=== PATIENT | male | born 1965 | race Caucasian/White ===

== ENCOUNTER 2021-02-13 17:50 | Outpatient (REF) | payer BC, SELFPAY ==
[2021-02-13 18:32] LABS: Influenza A PCR NEGATIVE (Negative); Influenza B PCR NEGATIVE (Negative); Resp Syncy Virus RNA Qual PCR NEGATIVE (Negative); SARS COV2 PCR INHOUSE NEGATIVE (Negative)
== END 2021-02-13 17:51 | disposition home or self-care (01) ==
LOC: HO.LNP 17:50
PROVIDERS: Visit Provider Physician Assistant
DX: Z20.822 Contact with and (suspected) exposure to COVID-19 (principal); J06.9 Acute upper respiratory infection, unspecified
CPT/HCPCS: 0241U

== ENCOUNTER 2021-03-29 11:05 | Outpatient (REF) | payer BC, SELFPAY ==
--- NOTE | ~2021-03-29 | XR_ITS ---
EXAMINATION: XR CHEST CLINICAL INFORMATION: Cough COMPARISON: None TECHNIQUE: 2 views of the chest were obtained. FINDINGS: There is a region of parenchymal disease seen within the lingula likely related to atelectasis or scarring. Pneumonitis not excluded. Heart appears mildly enlarged. No evidence of pulmonary edema. No pneumothorax or pleural effusion. XR/XR chest 2V IMPRESSION: Lingular disease likely related to atelectasis or scarring.
== END 2021-03-29 11:06 | disposition home or self-care (01) ==
LOC: HO.HMGCX 11:05
PROVIDERS: Visit Provider Nurse Practitioner Family
DX: R05.8 Other specified cough (principal)
CPT/HCPCS: 71046

== ENCOUNTER 2024-09-26 15:09 | Outpatient (REF) | payer BC, SELFPAY ==
--- OUTSIDE RECORDS SUMMARY | 2024-09-26 15:44 | XMS_ITS | Patient Health Record ---
[facility] Address [address] [place] [address] Care Team Providers Care Fisher Swordfish Name Role Phone Pawel Oconnor MD Primary Care Provider Eleazar Walter Unavailable [phone] Allergies Allergen (clinical drug ingredient) Drug/Non Drug Allergy documented on EMR Reaction Allergy Type Onset Date Status meperidine Demerol Unknown Drug Allergy Active Reason For Referral No Information Medications Medication SIG (Take, Route, Frequency, Duration) Notes Start Date End Date Status Omeprazole 20 MG 1 capsule Orally Onc e a day Active Zoloft 100 MG 1 tablet Orally Once a day Active Plavix 75 MG 1 tablet Orally Once a day Active LORazepam 0.5 MG 1 tablet at bedtime as needed Orally Once a day Active Lipitor 40 MG 1 tablet Orally Once a day Active Isosorbide Mononitrate 20 MG 1 tablet Orally Twice a day Active Naproxen 500 MG 1 tablet as needed Orally every 12 hrs Active traZODone HCl Active Aspirin 81 MG 1 tablet Orally Once a day Active Toprol XL 25 MG 1 tablet Orally Once a day Active Citalopram Hydrobromide Not-Taking Wellbutrin Active Norvasc 5 MG 1 tablet Orally Once a day Active Flomax 0.4 MG 1 capsule 30 minutes after the same meal each day Orally Once a day Active Social History Tobacco Use: Social History Observation Description Date Details (start date - stop date) Never Smoker NA - NA Tobacco Use/Smoking Question Answer Notes Are you a: nonsmoker Additional Findings: Tobacco Non-User Aggressive non-smoker Alcohol Screen Question Answer Notes Did you have a drink containing alcohol in the p ast year? Yes Points 0 Interpretation Negative Tobacco use other than smoking: Question Answer Notes Are you an other tobacco user? No Problems Problem Type SNOMED Code ICD Code Onset Dates Problem Status W/U Status Risk Notes Problem Localized, primary osteoarthritis of the ankle and/or foot (841606566) Primary osteoarthrit is, left ankle and foot (M19.072) Active confirmed Plan Of Treatment No Information Insurance Providers Payer Name Payer Address Payer Phone Subscriber Number Group Number Insured Name Patient Relationship to Insured Coverage Start Date Coverage End Date [facility] [address] [place] [address] [phone] [id number] Self - patient is the insured Medical (General) History Medical History History ICD Code Anxiety Depression Gout chronic sinusitis Mumps Measles Chicken pox heart attack Hyperlipidemia Myocardial infarction low testosterone Obesity dysplastic nevus urinary calculus chest pain rhinitis Hearing loss Surgical History Surgery Date(Month/Year) strabismus surgery Hospitalization History Reason Date(Month/Year[place] [facility] [place]
--- OUTSIDE RECORDS SUMMARY | 2024-09-26 15:44 | XMS_ITS | Clinical Summary ---
Author Organization [facility] Address [address] [address] Phone Care Team Providers Care Estimator Printing Name Role Phone Pawel Oconnor MD Primary Care Provider U navailable Allergies Active Allergy Reactions Criticality Noted Date Comments Demerol (Meperidine) Unknown 10/29/2014 Medications atorvastatin (LIPITOR) 40 MG tablet Take 1 tablet (40 mg total) by mouth daily. 90 tablet 3 10/29/2014 Active tamsulosin (FLOMAX) 0.4 mg Cp24 Take 1 capsule (0.4 mg total) by mouth daily. 30 capsule 0 10/29/2014 Active Active Problems Problem Noted Date Diagnosed Date Angina at rest 10/29/2014 Myocardial infarction 10/29/2014 Orthostatic hypotension 10/29/2014 Dyslipidemia 10/29/2014 Obesity 10/29/2014 Family History Medical History Relation Comments Alzheimer's disease Father Hypertension Father Depression Mother Relation Status Comments Father Mother Social History Tobacco Use Types Packs/Day Years Used Date Smoking Tobacco: Never Alcohol Use Standard Drinks/Week Comments Not Asked 0 (1 standard drink = 0.6 oz pur e alcohol) Education Answer Date Recorded Are you interested in more education? Not on drew e 06/06/2022 Are you concerned about learning? Not on file 06/06/2022 No 06/06/2022 No 06/06/2022 Digital Access Answer Date Recorded No 07/07/2022 No 07/07/2022 No 07/07/2022 Reliable internet access at home? Not on file 07/07/2022 Device with a working camera? Not on file Sex and Gender Information Value Date Recorded Sex Assigned at Not on file Legal Sex Male 9:56 AM EDT Gender Identity Not on file Sexual Orientation Not on file Last Filed Vital Signs Vital Sign Reading Time Taken Comments Blood Pressure 111/80 10/30/2014 1:25 PM EDT Pulse 80 10/30/2014 1:25 PM EDT Temperature - - Respiratory Rate - - Oxygen Saturation - - Inhaled Oxygen Concentration - - Weight 113.4 kg (250 lb) 10/30/2014 1:25 PM EDT Height - - Body Mass Index - - Plan of Treatment Health Maintenance Due Date Last Done Comments LIPID PANEL 1966 HEPATITIS C SCREENING 1984 HIV ONE-TIME SCREENING (18-6 5 YEARS) 1984 COLOGUARD 09/13/2011 COLONOSCOPY 09/13/2011 COLORECTAL CANCER SCREENING 09/13/2011 FIT TEST 09/13/2011 FOBT 09/13/2011 SIGMOIDOSCOPY 09/13/2011 VIRTUAL COLONOSCOPY 09/13/2011 DEPRESSION SCREENING 10/31/2015 10/30/2014, 10/30/2014 Adult Td,Tdap Booster 05/22/2016 05/22/2006 PNEUMOCOCCAL VACCINES (50+ years) (1 of 1 - PCV) 2016 ZOSTER VACCINES (1 of 2) 2016 COVID-19 VACCINE (3 - 2023-2 5 season) 2023 05/18/2020, 04/27/2020 SMOKING STATUS SCREENING (On ce After 26 Yrs) Completed 10/30/2014 HEPATITIS A VACCINES Aged Out No long er eligible based on patient's age to complete this topic HIB VACCINES Aged Out No longer eligi ble based on patient's age to complete this topic MENINGOCOCCAL VACCINES (ACWY) Aged Out No longer eligible based on patient's age to complete this topic MENINGOCOCCAL VACCINES (B) Aged Out N o longer eligible based on patient's age to complete this topic Medical Devices Not on file Insurance [facility] HMO POS HMO POS HMO POS HMO POS HMO POS HMO POS [place] [address] [place] [address] HMO POS HMO POS Care Teams Estimator Printing Relationship Specialty Start Date End Date Pawel Oconnor MD PCP - General Internal Medicine 10/25/14 Additional Source Comments The information contained in this document represents components of the legal health record. It is not the complete legal health record.[facility]
--- OUTSIDE RECORDS SUMMARY | 2024-09-26 15:44 | XMS_ITS ---
Author Name [facility] Organization Unknown Care Team Organization Name Specialty Phone Email Start Date End Da cj [facility] Pavan Flores Primary Care 12/17/2021
--- OUTSIDE RECORDS SUMMARY | 2024-09-26 15:44 | XMS_ITS | Clinical Summary ---
Author Organization [address] [place] [address] [place] [phone] Phone Care Team Providers Care Parts Inspector Name Role Phone Jayshree Alfaro MD Primary Care Provider + Allergies Active Allergy Reactions Criticality Noted Date Comments Meperidine Hcl 04/04/2005 Fliffed out Medications omeprazole 20 mg tablet,disintegr at, delay rel Take 20 mg by mouth daily. Active potassium citrate (UROCIT-K) 15 mEq SR tablet Take by mouth 2 times daily. Active tamsulosin (FLOMAX) 0.4 mg 24 hr capsule Take 0.4 mg by mouth 2 times daily. Take 30 mins after same meal every day. Active gabapentin (NEURONTIN) 100 mg capsule Take 2 capsules (200 mg total) by mouth 3 (three) times a day. 1 Active LORazepam (ATIVAN) 0.5 mg tablet Take 1 tablet by mouth daily as needed for Anxiety. 1 Active sertraline (ZOLOFT) 100 mg tablet 2 po qhs 1 Active traZODone (DESYREL) 100 mg tablet 1 po qhs prn insomnia 1 Active metaxalone (SKELAXIN) 800 mg tablet Take 1 tablet by mouth 3 times daily. Covering provider, As needed for muscle spasm 1 Active albuterol HFA (PROAIR HFA ; PROVENTIL HFA ; VENTOLIN HFA) 90 mcg/actuation inhaler Inhale 2 Puffs into the lungs every 4 hours as needed for Cough or Wheezing. 0 Active nitroglycerin (NITROSTAT) 0.4 mg SL tablet Take one tablet under your tongue for chest pain. If you still have chest pain after five minutes, take another tablet under your tongue. If you still have chest pain five minutes later, take a third tablet and call 911 to go to the hospital. Do not drive yourself. 9 Active aspirin 81 mg EC tablet Take 1 tablet (81 mg total) by mouth 1 (one) time each day. Active traZODone (DESYREL) 50 mg tablet Take 1 tablet (50 mg total) by mouth at bedtime. Active atorvastatin (LIPITOR) 80 mg tablet Take 1 tablet (80 mg total) by mouth 1 (one) time each day. 90 tablet 3 5 Active isosorbide mononitrate (IMDUR) 30 mg 24 hr tablet Take 1 tablet (30 mg total) by mouth 1 (one) time each day. 90 tablet 3 5 Active amLODIPine (NORVASC) 5 mg tablet Take 1 tablet (5 mg total) by mouth 1 (one) time each day. 90 each 3 5 02/11/19 26 Active metoprolol succinate (TOPROL-XL) 25 mg 24 hr tablet Take 1 tablet (25 mg total) by mouth 2 (two) times a day. 180 tablet 3 5 Active Active Problems Problem Noted Date Diagnosed Date CAD (coronary artery disease) 03/06/2022 SOB (shortness of breath) 03/06/2022 CKD (chronic kidney disease) stage 3, GFR 30-59 ml/min ([facility] V24, [facility] V28) 09/18/2020 Treatment-emergent central sleep apnea 1 Overview (12/30/2023): 08/2020 central apnea emergent on CPAP. Stress echocardiogram April 2020 showed EF of 65%. Essential hypertension 06/05/2020 Assessment & Plan (02/12/2024 10:07 AM EST): Orders: ECG 12 lead Lipid panel with reflex to direct LDL; Future Basic metabolic panel; Future Obstructive sleep apnea 10/14/2019 Overview (12/30/2023): [facility] Home Sleep Apnea Test: Date 10/06/2019; Wt 240#; BMI 41; HASMUKH (AHI) 13, AI 4; HI 8; Unclassified apneas 3; Obstructive apneas 7; Central apneas 1; Mixed apneas 0; hypopneas 22; average oxygen saturation 92% (lowest 82% without saturations <88% for 5% or more of study) - Obstructive Sleep Apnea - mild; mostly hypopneas; without sleep related hypoventilation by 2019 home sleep apnea test. Anxiety 04/04/2019 Lung nodule 09/17/2018 Overview (12/30/2023): CT from 09/2018: There is a 3.5 mm nodule in the right upper lobe, axial image number 93. There is 3.1 mm subpleural nodule in the left lower lobe, axial image 179. Radiology suggested a 12-month CT if the patient has risk factors for malignancy which he really does not. Patient is not sure if he wants to do another CT at this point and would prefer to hold off on ordering for now. Major depressive disorder, r ecurrent episode, mild ([facility] V24) 11/21/2014 Hyperlipidemia 09/15/2012 Assessment & Plan (02/12/2024 10:07 AM EST): Orders: Lipid panel with reflex to direct LDL; Future Basic metabolic panel; Future Old DC (myocardial infarction) 07/30/2011 Overview (12/30/2023): [facility] 07/28/11 - elevated tro and CK; normal coronary arteries on cath, suspect vasospasm Readmit 08/01/11 Low testosterone 02/24/2011 Severe obesity (BMI 35.0-39. 9) with comorbidity ([facility]CC V24, [facility] V28) 05/28/2010 Chronic rhinitis 04/04/2005 Sensorineural hearing loss 04/04/2005 Urinary calculus 04/04/2005 Immunizations Name Administration Dates Next Due Hepatitis B (Ytrxwid-M-Ghkty , Recombivax HB-Adult) 19yo and older 05/04/2013,04/06/2013,12/12/2009,2009,06/01/2009 Influenza trivalent, 0.5mL, preservative free (Fluarix; FluLaval; Fluzone) ages 6mo and older (Afluria) 3 years and older 11/28/2016,11/17/2011,10/26/2009 Influenza, Unspecified 11/23/2020,2019,11/09/2017,2015 PPD Test 03/30/2013 Tdap Tetanus diptheria acell ular pertussis (Boostrix; Adacel) 7yo and older 05/22/2006 Surgical History Surgery Date Site/Laterality Comments OTHER SURGICAL HISTORY PROCEDURE: HISTORY OTHER; COMMENT: strabismus surgery CARDIAC CATHETERIZATION PROCEDURE: HISTORICAL CARDIAC CATH; COMMENT: no blockages, vasospasm TYMPANOSTOMY TUBE PLACEMENT PROCEDURE: HISTORICAL PE TUBES OTHER SURGICAL HISTORY PROCEDURE: NM EXC B9 LESION MRGN XCP SK TG T/A/L 0.5 CM/<; COMMENT: dermatology OTHER SURGICAL HISTORY PROCEDURE: SKIN CYST; COMMENT: right shoulder removed Medical History Medical History Date Comments Anxiety state, unspecified DX:An xiety state, unspecified Urinary calculus, unspecified DX :Urinary calculus, unspecified Chest pain, unspecified DX:Chest pain, unspecified Chronic rhinitis DX:Chronic rhin itis Sensorineural hearing loss, unspecified DX:Sensorineural hearing loss, unspecified Low testosterone 02/24/2011 DX:Low testoste robbin Hyperlipidemia 09/15/2012 DX:Hyperlipidemi a Old DC (myocardial infarction) 07/30/2011 D X:Old DC (myocardial infarction); COMMENT: [facility] 07/28/11 - elevated tro and CK; normal coronary arteries on cath, suspect vasospasm Readmit 08/01/11 History of dysplastic nevus 10/20/2007 DX:H istory of dysplastic nevus; COMMENT: Dysplastic nevi 10/17 midback & lower back (mild atypia) Fracture of thoracic spine ( [facility] V24, [facility] V28) 08/16/2018 DX:Fracture of thoracic spin e (HCC) CKD (chronic kidney disease) stage 3, GFR 30-59 ml/min ([facility] V24, [facility] V28) 09/18/2020 DX:CKD (chronic kidney disea se) stage 3, GFR 30-59 ml/min ([facility]) Severe obesity (BMI 35.0-39. 9) with comorbidity ([facility] V24, [facility]/H[facility] V28) 05/28/2010 DX:Severe obesi ty (BMI 35.0- 39.9) with comorbidity (HCC) BPH (benign prostatic hyperplasia) DX:BPH (benign prostatic hyperplasia) Low back pain DX:Low back pain Major depression, recurrent (CMS/HCC V24) DX:Major depression, recurre nt (HCC) Class 2 obesity DX:Class 2 obesi ty Diverticulum of bladder DX:Diver ticulum of bladder Nephrolithiasis DX:Nephrolithias is Family History Medical History Relation Name Comments Other: arm amputation Aunt not jung re why? Alzheimer's disease Father HTN, uma dder cancer Diabetes Maternal Grandfather Diabetes Mother dementia Other: cousin w/ brain cancer Other Lung cancer Paternal Grandfather smoker Other: kidney cancer? Uncle smoker Relation Name Status Comments Aunt Brother Alive htn Father HTN Maternal Grandfather Mother Alive well Other Paternal Grandfather Uncle Social History Tobacco Use Types Packs/Day Years Used Date Smoking Tobacco: Never Smokeless Tobacco: Never Alcohol Use Standard Drinks/Week Comments Yes 0 (1 standard drink = 0.6 oz pur e alcohol) occasionally Sex and Gender Information Value Date Recorded Sex Assigned at Not on file Legal Sex Male 6:32 AM EST Gender Identity Not on file Sexual Orientation Not on file Obstetrics History Last Filed Vital Signs Vital Sign Reading Time Taken Comments Blood Pressure 104/70 02/12/2024 9:32 AM EST Pulse 90 12/24/2022 11:22 AM EST Temperature - - Respiratory Rate - - Oxygen Saturation 92% 02/12/2024 9:32 AM EST Inhaled Oxygen Concentration - - Weight 110 kg (243 lb) 02/12/2024 9:32 AM EST Height 167.6 cm (5' 6 ) 02/12/2024 9:32 AM EST Body Mass Index 39.22 02/12/2024 9:32 AM EST Plan of Treatment Health Maintenance Due Date Last Done Comments Pneumococcal Vaccine: 50+ Years (1 of 1 - PCV) 2016 HIV Screening 01/18/2022 Hepatitis C Screening 01/18/2022 Social Influencers of Health Screening 01/18/2022 COVID-19 Vaccine ( season) 2023 01/11/2021, 05/18/2020, 04/27/2020 Depression Screening 02/10/2024 Influenza Vaccine (#1) 2024 2, 11/23/2020, 11/13/2020, Additional history exists Hypertension/CHF/CAD Annual BMP Blood Test 02/15/2025 02/16/2024, 09/17/2020 Cholesterol Screening (Lipid Panel) 02/15/2026 02/15/2021 Colorectal Cancer Screening: Colonoscopy 03/25/2027 03/25/2017 DTaP,Tdap,and Td Vaccines (3 - Td or Tdap) 11/15/2031 11/14/2021, 05/22/2006 Hepatitis B Vaccines Completed 05/04/2013, 04/06/2013, 12/12/2009, Additional history exists Zoster Vaccines Completed 06/15/2021, 04/11/2021 HIB Vaccines Aged Out No longer eligi ble based on patient's age to complete this topic HPV Vaccines Aged Out No longer eligi ble based on patient's age to complete this topic Hepatitis A Vaccines Aged Out No long er eligible based on patient's age to complete this topic IPV Vaccines Aged Out No longer eligi ble based on patient's age to complete this topic MMR Vaccines Aged Out No longer eligi ble based on patient's age to complete this topic Meningococcal ACWY Vaccine Aged Out N o longer eligible based on patient's age to complete this topic Meningococcal B Vaccine Aged Out No l onger eligible based on patient's age to complete this topic RSV Immunization Patients Under 20 months Aged Out No longer eligible based on patient's age to complete this topic Varicella Vaccines Aged Out No longer eligible based on patient's age to complete this topic Procedures Procedure Name Priority Date/Time Associated Diagnosis Comments BASIC METABOLIC PANEL Routine 02/16/2024 10:00 AM EST Essential hypertension Hyperlipidemia, unspecified hyperlipidemia type LIPID PANEL Routine 02/15/2021 HM COLONOSCOPY Routine 03/25/2017 from Last 3 Months or Most Recently Relevant to Health Maintenance Results * (ABNORMAL) Basic metabolic panel (02/16/2024 10:00 AM EST) Glucose 100(H) 70 - 99 mg/dL [facility] Blood Urea Nitrogen (BUN) 24 6 - 24 mg/dL [facility] Creatinine 1.52(H) 0.76 - 1.27 mg/dL [facility] 1 eGFR 53(L) >59 mL/min/1.7 3 [facility] 1 BUN/Creatinine Ratio 16 9 - 20 [facility] 1 Sodium 144 134 - 144 mmol/L [facility] 1 Potassium 4.2 3.5 - 5.2 mmol/L [facility] 1 Chloride 103 96 - 106 mmol/L [facility] 1 Carbon Dioxide 24 20 - 29 mmol/L [facility] 1 Calcium 9.3 8.7 - 10.2 mg/dL [facility] 1 Blood Venous blood specimen / Unknown 02/16/2024 10:00 AM EST 02/16/2024 Narrative [facility] 1 - 02/17/2024 1:05 AM EST Performed at: [facility] [address] [id number] Pulmonary Disease Specialist: Betzaida Oliva MD, Phone: [phone] El Patel MD LAB BLOOD ORDERABLES Darlene l Result [facility] 1 * (ABNORMAL) Lipid panel (02/15/2021) Pathologist [facility] LDL/HDL Ratio 4 0 - 4 Triglycerides 141 0 - 150 mg/dL Cholesterol 125 0 - 200 mg/dL HDL 33(A) >=40 mg/dL LDL Cholesterol 64 0 - 100 mg/dL Blood Venous blood specimen / Unknown Historical Kira ALLEN LAB BLOOD ORDERABLES Darlene l Result * Colonoscopy (03/25/2017) Pathologist [facility] Colonoscopy abstracted, no interpretation Anatomical Region Laterality Modality Other Historical Provider HEALTH MAINTENANCE Final Result from Last 3 Months or Most Recently Relevant to Health Maintenance Insurance [facility] Advance Directives Documents on File Type Date Recorded Patient Trial Mgr Expl anation Health Care Decision (hx) 05/08/2009 AD ADAME DIRECTIVE Health Care Decision (hx) 05/08/2009 AD ADAME DIRECTIVE Health Care Decision (hx) 05/08/2009 AD ADAME DIRECTIVE Health Care Decision (hx) 05/08/2009 AD ADAME DIRECTIVE Health Care Decision (hx) 05/08/2009 AD ADAME DIRECTIVE Health Care Decision (hx) 05/08/2009 AD ADAME DIRECTIVE Health Care Decision (hx) 05/08/2009 AD ADAME DIRECTIVE Health Care Decision (hx) 05/08/2009 AD ADAME DIRECTIVE Health Care Decision (hx) 05/08/2009 AD ADAME DIRECTIVE Care Teams Parts Inspector Relationship Specialty Start Date End Date Jayshree Alfaro MD [address] [place] [phone] PCP - General 03/07/22
--- OUTSIDE RECORDS SUMMARY | 2024-09-26 15:44 | XMS_ITS | Clinical Summary ---
Author Organization [facility]. Address [address] [address] Phone Care Team Providers Care Best Worker Name Role Phone Jayshree Alfaro MD Primary Care Provider + Allergies Active Allergy Reactions Criticality Noted Date Comments Meperidine Other (see comments) 06/03/2022 anger Medications aspirin (ST IKE) 81 MG EC tablet Take 81 mg by mouth 1 (one) time each day Active atorvastatin (LIPITOR) 40 MG tablet Take 40 mg by mouth every night Active tamsulosin (FLOMAX) 0.4 MG 24 hr capsule Take 0.4 mg by mouth 1 (one) time each day Active gabapentin (NEURONTIN) 100 MG capsule Take 100 mg by mouth in the morning and 100 mg in the evening and 100 mg before bedtime. Active isosorbide mononitrate (IMDUR) 30 MG 24 hr tablet Take 30 mg by mouth 1 (one) time each day Do not crush or chew. Active LORazepam (ATIVAN) 0.5 MG tablet Take 0.5 mg by mouth 1 (one) time each day if needed for anxiety Active metoprolol succinate XL (TOPROL XL) 25 MG 24 hr tablet Take 12.5 mg by mouth 1 (one) time each day Do not crush or chew. Active omeprazole (PriLOSEC) [address] capsule Take 20 mg by mouth 1 (one) time each day Do not crush or chew. Active sertraline (ZOLOFT) 100 MG tablet Take 100 mg by mouth 1 (one) time each day Active traZODone (DESYREL) 100 MG tablet Take 300 mg by mouth every night Active amLODIPine (NORVASC) 5 MG tablet Take 5 mg by mouth 1 (one) time each day Active finasteride (PROSCAR) 5 MG tablet Take 5 mg by mouth 1 (one) time each day 03/30/2024 Active clopidogrel (Plavix) 75 MG tablet Take 75 mg by mouth 1 (one) time each day at the same time Active Active Problems Problem Noted Date Diagnosed Date Chronic back pain 08/23/2024 Complete deafness 12/02/2022 12/02/2022 H/O: vertebral fracture 12/02/2022 12/03/19 History of non-ST segment elevation myocardial i nfarction 12/02/2022 12/02/2022 Stage 3a chronic kidney disease 06/04/2022 Nephrolithiasis 06/04/2022 Hypertension 06/04/2022 Acute nontraumatic kidney injury 06/04/2022 Coronary arteriosclerosis 03/06/2022 Obstructive sleep apnea 10/14/2019 Overview (08/23/2024): [facility] Home Sleep Apnea Test: Date 10/06/2019; Wt [...] hypoventilation by 2019 home sleep apnea test. Dyslipidemia 10/29/2014 12/02/2022 Hyperlipidemia 09/15/2012 Resolved Problems Problem Noted Date Diagnosed Date Resolved Date Serum creatinine above reference range 06/03/2022 12/02/2022 Encounters Date Type Department Care Team Description 08/23/2024 4:30 PM EDT Office Visit [facility] [address] [phone] Ken Williamson MD Stage 3a chronic kidney disease (HCC) (Primary Dx) 08/13/2024 Orders Only [facility] [address] [phone] Ken Williamson MD 08/09/2024 Orders Only [facility] [address] [facility] [address] [place] [address] Ade Mccullough Stage 3a chronic kidney disease (HCC) (Primary Dx); Nephrolithiasis; Hypertension; Dyslipidemia from Last 3 Months Immunizations Immunization Administration Dates Next Due Hepatitis B 05/04/2013, 4,12/12/2009,07/05/2009 ,06/01/2009 Influenza (IM) Preservative Free 11/28/2016,10/0 09/2011,10/26/2009 Influenza, Unspecified 11/23/2020,11/11/2019,02/2017,11/21/2015 PPD Test 03/30/2013 Pfizer SARS-COV-2 01/11/2021,05/18/2020,04/28/19 21 Shingrix 06/15/2021,04/11/2021 Td, Unspecified 11/14/2021 Tdap 05/22/2006 Family History Medical History Relation Comments Cancer Father bladder Lymphoma Father Diabetes Mother type 2 Relation Status Comments Father Mother Social History Tobacco Use Types Packs/Day Years Used Date Smoking Tobacco: Never Smokeless Tobacco: Never Tobacco Cessation:Counseling Given: Not Answered Alcohol Use Standard Drinks/Week Comments Yes 0 (1 standard drink = 0.6 oz pur e alcohol) ocassionally Sex and Gender Information Value Date Recorded Sex Assigned at Not on file Legal Sex Male 5:21 PM EST Gender Identity Not on file Sexual Orientation Not on file Last Filed Vital Signs Vital Sign Reading Time Taken Comments Blood Pressure 106/60 08/23/2024 4:57 PM EDT Pulse 70 06/04/2022 10:35 AM EDT Temperature - - Respiratory Rate - - Oxygen Saturation 97% 06/04/2022 10:35 AM EDT Inhaled Oxygen Concentration - - Weight 110 kg (243 lb) 08/23/2024 4:57 PM EDT Height 175.3 cm (5' 9 ) 06/04/2022 10:35 AM EDT Body Mass Index 35.88 06/04/2022 10:35 AM EDT Plan of Treatment Upcoming Encounters Date Type Department Care Team (Late st Contact Info) Description 02/21/2025 3:30 PM EST Office Visit [facility] [address] [facility] [address] [place] [address] Ken Williamson MD [address] [facility] [address] [place] [address] Health Maintenance Due Date Last Done Comments Hepatitis B Vaccine (1 of 3 - 19+ 3-dose series) 1984 05/04/2013, 04/06/2013, 12/12/2009, Additional history exists Pneumococcal Vaccine: 50+ Ye ars (1 of 2 - PCV) 1985 Colorectal Cancer Screening: Annual FOBT 09/13/2015 Colorectal Cancer Screening: Colonoscopy 09/13/2015 Colorectal Cancer Screening: Sigmoidoscopy 09/13/2015 Influenza Vaccine (#1) 2024 , 11/11/2019, 11/09/2017, Additional history exists Procedures Procedure Name Priority Date/Time Associated Diagnosis Comments PROTEIN / CREATININE RATIO, URINE Routine 08/13/2024 9:00 AM EDT URINALYSIS WITH MICROSCOPIC Routine 08/13/2024 9:00 AM EDT MICROSCOPIC EXAMINATION - DO NOT USE Routine 08/13/2024 9:00 AM EDT PTH, INTACT Routine 08/11/2024 3:00 PM EDT Stage 3a chronic kidney disease (HCC) Nephrolithiasis Hypertension Dyslipidemia COMPREHENSIVE METABOLIC PANEL Routine 08/11/2024 3:00 PM EDT Stage 3a chronic kidney disease (HCC) Nephrolithiasis Hypertension Dyslipidemia URIC ACID Routine 08/11/2024 3:00 PM EDT Stage 3a chronic kidney disease (HCC) Nephrolithiasis Hypertension Dyslipidemia PHOSPHATE ( PHOSPHORUS) Routine 08/11/2024 3:00 PM EDT Stage 3a chronic kidney disease (HCC) Nephrolithiasis Hypertension Dyslipidemia VITAMIN D 25 HYDROXY Routine 08/11/2024 3:00 PM EDT Stage 3a chronic kidney disease (HCC) Nephrolithiasis Hypertension Dyslipidemia CBC AND DIFFERENTIAL Routine 08/11/2024 3:00 PM EDT Stage 3a chronic kidney disease (HCC) Nephrolithiasis Hypertension Dyslipidemia MAGNESIUM Routine 08/11/2024 3:00 PM EDT Stage 3a chronic kidney disease (HCC) Nephrolithiasis Hypertension Dyslipidemia from Last 3 Months Results * (ABNORMAL) Microscopic Examination (08/13/2024 9:00 AM EDT) WBC, Urine 0-5 0 - 5 /hpf [facility] RBC, Urine None seen 0 - 2 /hpf [facility] Squamous Epithelial, Urine None seen 0 - 10 /hpf [facility] Casts None seen None seen /lpf [facility] Bacteria, Urine Moderate(A ) None seen/Few [facility] 08/13/2024 9:00 AM EDT 08/13/2024 us Ken Williamson MD LAB MICROBIOLOGY - GE NERAL ORDERABLES Final Result [facility] [address] [place] [address] * Protein, Total, Random Urine w/Creatinine (Protein/Creat Ratio) (08/13/2024 9:00 AM EDT) Creatinine, Ur 86.7 Not Estab. mg/dL [facility] Protein, Ur 9.3 Not Estab. mg/dL [facility] Urine Protein/Creatin ine Ratio 107 0 - 200 mg/g creat [facility] 08/13/2024 9:00 AM EDT 08/13/2024 Ken Williamson MD LAB URINE ORDERABLES Final Result [facility] [address] [place] [address] * (ABNORMAL) Urinalysis with microscopic (08/13/2024 9:00 AM EDT) Specific [place], Urine 1.016 1.005 - 1.030 [facility] pH Urine 6.0 5.0 - 7.5 [facility] Color, Urine Yellow Yellow [facility] Appearance Urine Clear Clear [facility] WBC Esterase Urine 1+(A) Negative [facility] Protein, Ur Negative Negative/Tr pal [facility] Glucose, Ur Negative Negative [facility] Ketones, Urine Negative Negative [facility] Blood Urine 1+(A) Negative [facility] Bilirubin Urine Negative Negative [facility] [phone] Urobilinogen Urine 0.2 0.2 - 1.0 mg/dL [facility] [phone] Nitrite, Urine Positive(A) Negative [facility] Microscopic Examination See below: [facility] [phone] Comment:Microscopic was aldo cated and was performed. 08/13/2024 9:00 AM EDT 08/13/2024 us Ken Williamson MD LAB URINE ORDERABLES Final Result [facility] [address] [place] [address] * Vitamin D 25 Hydroxy (08/11/2024 3:00 PM EDT) Pathologist [facility] Vitamin D, 25-OH, Total 31.6 30.0 - 100.0 ng/mL [facility] Comment: Vitamin D deficiency has been defined by the [place] of Medicine and an Endocrine Society practice guideline as a level of serum 25-OH vitamin D less than 20 ng/mL (1,2). The Endocrine Society went on to further define vitamin D insufficiency as a level between 21 and 29 ng/mL (2). 1. IOM ([place] of Medicine). 2010. Dietary reference intakes for calcium and D. [place]: The National Academies Press. 2. Deanna MF, Liz MORE, Bryce RUIZ, et al. Evaluation, treatment, and prevention of vitamin D deficiency: an Endocrine Society clinical practice guideline. JCEM. 2010; 96(7):1911-30. Blood Venous blood / Unknown 08/11/2024 3:00 PM EDT 08/11/2024 us Ken Williamson MD LAB BLOOD ORDERABLES Final Result [facility] [address] [place] [address] * CBC and Differential (08/11/2024 3:00 PM EDT) Pathologist [facility] WBC 8.8 3.4 - 10.8 x10E3/uL [facility] RBC 5.06 4.14 - 5.80 x10E6/uL [facility] Hemoglobin 14.9 13.0 - 17.7 g/dL [facility] Hematocrit 44.4 37.5 - 51.0 % [facility] MCV 88 79 - 97 fL [facility] MCH 29.4 26.6 - 33.0 pg [facility] MCHC 33.6 31.5 - 35.7 g/dL [facility] RDW 14.5 11.6 - 15.4 % [facility] Platelets 202 150 - 450 x10E3/uL [facility] Neutrophils Relative 68 Not Estab. % [facility] Lymphocytes Relative 21 Not Estab. % [facility] Monocytes 7 Not Estab. % [facility] Eosinophils Relative 2 Not Estab. % [facility] Basophils Relative 1 Not Estab. % [facility] Neutrophils Absolute 6.0 1.4 - 7.0 x10E3/uL [facility] Lymphocytes Absolute 1.9 0.7 - 3.1 x10E3/uL [facility] Monocytes Absolute 0.6 0.1 - 0.9 x10E3/uL [facility] Eosinophils Absolute 0.2 0.0 - 0.4 x10E3/uL [facility] Basophils Absolute 0.0 0.0 - 0.2 x10E3/uL [facility] Immature Granulocytes 1 Not Estab. % [facility] Immature Grans (Absolute) 0.1 0.0 - 0.1 x10E3/uL [facility] Blood Venous blood / Unknown 08/11/2024 3:00 PM EDT 08/11/2024 us Ken Williamson MD LAB BLOOD ORDERABLES Final Result [facility] [address] [place] [address] * Uric Acid (08/11/2024 3:00 PM EDT) Uric Acid 6.0 3.8 - 8.4 mg/dL [facility] Comment:Therapeutic target f or gout patients: <6.0 Blood Venous blood / Unknown 08/11/2024 3:00 PM EDT 08/11/2024 Ken Williamson MD LAB BLOOD ORDERABLES Final Result [facility] [address] [place] [address] * Phosphorus (08/11/2024 3:00 PM EDT) Pathologist [facility] Phosphorus 3.8 2.8 - 4.1 mg/dL [facility] Blood Venous blood / Unknown 08/11/2024 3:00 PM EDT 08/11/2024 Ken Williamson MD LAB BLOOD ORDERABLES Final Result [facility] [address] [place] [address] * PTH, Intact (08/11/2024 3:00 PM EDT) Pathologist [facility] PTH 38 15 - 65 pg/mL [facility] Blood Venous blood / Unknown 08/11/2024 3:00 PM EDT 08/11/2024 Ken Williamson MD LAB BLOOD ORDERABLES Final Result [facility] [address] [place] [address] * Magnesium (08/11/2024 3:00 PM EDT) Pathologist [facility] Magnesium 2.1 1.6 - 2.3 mg/dL [facility] Blood Venous blood / Unknown 08/11/2024 3:00 PM EDT 08/11/2024 Ken Williamson MD LAB BLOOD ORDERABLES Final Result [facility] [address] [place] [address] * (ABNORMAL) Comprehensive Metabolic Panel (08/11/2024 3:00 PM EDT) Pathologist [facility] Glucose 96 70 - 99 mg/dL [facility] BUN 26(H) 6 - 24 mg/dL [facility] Creatinine 1.52(H) 0.76 - 1.27 mg/dL [facility] eGFR CKD-EPI CR 2020 53(L) >59 mL/min/1.7 3 [facility] BUN/Creatinine Ratio 17 9 - 20 [facility] Sodium 143 134 - 144 mmol/L [facility] Potassium 4.0 3.5 - 5.2 mmol/L [facility] Chloride 104 96 - 106 mmol/L [facility] Bicarbonate (CO2) 23 20 - 29 mmol/L [facility] Calcium 9.7 8.7 - 10.2 mg/dL [facility] Total Protein 6.8 6.0 - 8.5 g/dL [facility] Albumin 4.4 3.8 - 4.9 g/dL [facility] Globulin 2.4 1.5 - 4.5 g/dL [facility] Total Bilirubin 0.4 0.0 - 1.2 mg/dL [facility] Alkaline Phosphatase 113 44 - 121 IU/L [facility] AST (SGOT) 17 0 - 40 IU/L [facility] ALT (SGPT) 16 0 - 44 IU/L [facility] Blood Venous blood / Unknown 08/11/2024 3:00 PM EDT 08/11/2024 Ken Williamson MD LAB BLOOD ORDERABLES Final Result [facility] [address] [place] [address] from Last [address] [place] [address] [place] [address] Care Teams Best Worker Relationship Specialty Start Date End Date Jayshree Alfaro MD [address] [place] [phone] PCP - General Dental [facility] Chief 06/04/22
== END 2024-09-26 15:10 | disposition home or self-care (01) ==
LOC: HO.SH 15:09
PROVIDERS: Visit Provider Internal Medicine
DX: Z01.118 Encounter for examination of ears and hearing with other abnormal findings (principal); H90.6 Mixed conductive and sensorineural hearing loss, bilateral
CPT/HCPCS: 92557; 92567